=== PATIENT | male | born 1995 | race Caucasian/White ===

== ENCOUNTER 2024-02-18 15:59 | Emergency (ER) | payer SELFPAY ==
[2024-02-18 16:20] VITALS: BP 124/74; PULSE 63; RESP 18; TEMP 98.3; BMI 33.5
[2024-02-18] MEDS ORDERED: FLUORESCEIN NA 1 EA STRIP ONE (16:45)
[2024-02-18] MEDS ORDERED: TETRACAINE 0.5% OPHTH SOLN 2 ML BOTTLE ONE (16:46)
[2024-02-18] MEDS: FLUORESCEIN NA 1 EA STRIP OS ONE (17:27)
== END 2024-02-18 18:15 | disposition short-term general hospital (02) ==
LOC: JER 15:59 → JERFT 15:59
DX: T15.02XA Foreign body in cornea, left eye, initial encounter (principal)
CPT/HCPCS: 99285-25